=== PATIENT | male | born 2000 | race Caucasian/White ===

== ENCOUNTER 2021-05-14 14:39 | Emergency (ER) | payer OTHER ==
[~2021-05-14] VITALS: Ht 177.8 cm; Wt 65.9 kg
[2021-05-14 14:47] VITALS: TEMP 98.2
[2021-05-14] MEDS ORDERED: INSULIN HUMA100 U/ML SQ (15:00)
[2021-05-14] MEDS ORDERED: NORCO 325 MG-51 TAB PO ×4 (15:41→16:26)
[2021-05-14 16:39] VITALS: BP 151/91; PULSE 118
== END 2021-05-14 16:40 | disposition home or self-care (01) ==
LOC: COL.ER 14:39
DX: S92.001A Unspecified fracture of right calcaneus, initial encounter for closed fracture (principal); S32.049A Unspecified fracture of fourth lumbar vertebra, initial encounter for closed fracture; E10.9 Type 1 diabetes mellitus without complications; W13.2XXA Fall from, out of or through roof, initial encounter; Y99.0 Civilian activity done for income or pay